=== PATIENT | female | born 1950 | race Asian ===

== ENCOUNTER 2019-12-05 06:50 | Outpatient (CLI) | payer MEDICARE, SELFPAY ==
--- NOTE | 2019-12-05 07:01 | US_ITS ---
WS: [id number] RIGHT UPPER QUADRANT ULTRASOUND HISTORY: ELEVATED LFTS COMPARISON: None available. Liver: 13.7 cm in length. Normal size and echogenicity with no intrahepatic dilatation. No mass. Gallbladder: Normally distended gallbladder with no stones or wall thickening. CBD: 0.6 cm Pancreas: Normal size and echogenicity. Right kidney: 9.8 cm in length. Normal echogenicity with no mass or hydronephrosis. Aorta and IVC: Unremarkable. No ascites. US/US liver [id number] IMPRESSION: Normal RIGHT upper quadrant ultrasound.
== END 2019-12-05 06:51 | disposition home or self-care (01) ==
LOC: RAD 06:59
PROVIDERS: PCP Family Medicine; Visit Provider Family Medicine
DX: R74.8 Abnormal levels of other serum enzymes (principal); R79.89 Other specified abnormal findings of blood chemistry
CPT/HCPCS: 76705

== ENCOUNTER 2020-07-25 09:40 | Outpatient (CLI) | payer MEDICARE, SELFPAY ==
--- NOTE | 2020-07-25 09:46 | MM_ITS ---
WS: [id number] BILATERAL SCREENING DIGITAL MAMMOGRAM WITH CAD HISTORY: SCREENING COMPARISON: None available. Bilateral CC and MLO views submitted. Computer aided detection analyzed. Breast composition: There are scattered areas of fibroglandular density. No suspicious masses, microc alcifications or architectural distortion. Patient does have bilateral breast implants which are barbara apsed and similar to prior studies. No implant displacement views will be obtained. Stable lymph node upper outer quadrant of the LEFT breast. MM/[id number] IMPRESSION: BI-RADS: 2-Benign FOLLOW UP: 1 Year Follow-up
== END 2020-07-25 09:41 | disposition home or self-care (01) ==
LOC: RADSHAW 09:45
PROVIDERS: PCP Family Medicine; Visit Provider Internal Medicine
DX: Z12.31 Encounter for screening mammogram for malignant neoplasm of breast (principal)
CPT/HCPCS: 77067

== ENCOUNTER 2021-04-15 08:34 | Outpatient (CLI) | payer MEDICARE, SELFPAY ==
--- NOTE | 2021-04-15 | US_ITS ---
WS: [id number] RIGHT UPPER QUADRANT ULTRASOUND HISTORY: ABDOMINAL PAIN COMPARISON: 12/05/2019 Liver: 12.7 cm in length. Normal size liver. No bile duct dilatation or mass. Gallbladder: Normally distended gallbladder with no stones or wall thickening. CBD: 0.5 cm Pancreas: Normal size and echogenicity. Right kidney: 10.2 cm in length. Normal size and echogenicity. No hydronephrosis or mass. Aorta and IVC: Unremarkable abdominal aorta and IVC. No ascites. US/US gall bladder [id number] IMPRESSION: Normal RIGHT upper quadrant ultrasound.
== END 2021-04-15 08:35 | disposition home or self-care (01) ==
LOC: US 08:36
PROVIDERS: PCP Family Medicine; Visit Provider Family Medicine
DX: R10.9 Unspecified abdominal pain (principal)
CPT/HCPCS: 76705

== ENCOUNTER 2021-07-24 08:47 | Outpatient (CLI) | payer MEDICARE, SELFPAY ==
[2021-07-24 11:49] LABS: Alanine Aminotransferase 29 U/L (0-33); Albumin Level 4.3 g/dL (3.5-5.2); Alkaline Phosphatase 68 IU/L (35-105); Aspartate Amino Transferase 27 U/L (0-32); Blood Urea Nitrogen 11 mg/dL (8-23); CRP High Sensitivity Cardiac < 0.150 mg/dL (0.0-0.3); Calcium 7.9 mg/dL (8.5-10.5); Carbon Dioxide 20 mmol/L (22-29); Chloride 107 mmol/L (98-107); Ferritin 697 ng/mL (15-150); Globulin 2.6 g/dL (1.3-4.6); Glucose 92 mg/dL (65-115); Iron 191 ug/dL (37-145); Osmolality Calculated 293 mOsm/kg (285-295); Sodium 142 mmol/L (136-145); Total Bilirubin 0.7 mg/dL (0.15-1.2); Total Iron Binding Capacity 298 mcg/dl; Total Protein 6.9 g/dL (6.6-8.7); Unsaturated Iron Binding 107 ug/dL (112-347)
[2021-07-24 11:53] LABS: Anion Gap 19.1 (5-19); Potassium 4.1 mmol/L (3.5-5.1)
--- NOTE | 2021-07-24 15:43 | ONC CON_ITS ---
Dr. Soria New Patient Note Patient: Mario Guallpa Unit #: [id number]: 1950 Dicatated By: Buster Soria M.D.Date of Visit: Jul 24, 2021 Onc MED New Patient/Consult Referring Physician: Dr. Hansa Ferguson M.D. Chief Complaint: Hemochromatosis. History of Present Illness: This is a 70-year-old woman with hereditary hemochromatosis. She has hypertension, hyperlipidemia, osteoporosis, and peripheral neuropathy. During the course of her follow-up with Dr. Ferguson, she was found to have elevated transferrin saturation and an elevated ferritin level. Her laboratory results from 06/16/2021 included a borderline high serum iron level at 169 mcg/dL and transferrin saturation in the upper normal range at 52%. The serum ferritin at that time was elevated at 401.5 ng/mL. Her CBC showed hemoglobin borderline high at 15.0 g/dL with hematocrit 47.0%. The white blood cell count was 5200 and the platelet count was 359,000. Comprehensive metabolic profile showed normal BUN and creatinine at 17 and 0.60 mg/dL. The bilirubin and liver enzymes were normal. TSH was normal at 3.879 ???IU/mL. 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 She says she has been feeling okay. She has good energy and she has normal activity. ECOG score is 0. Her appetite is good. She has not had fever or night sweats. She sometimes feels hot. She has a lot of allergy related sinus symptoms, and she sometimes has associated hearing loss. She has not had sore mouth or throat and she has no difficulty swallowing. She complains that she coughs all the time. She does not complain of shortness of breath or chest pain. She has no GI or complaints. She occasionally has joint pain after activity, mainly in the shoulders and knees. She sometimes has a headache. She does not complain of dizziness. She sometimes has numbness in her right leg. She has no other focal neurologic symptoms. Past Medical History: Her medical history includes hypercholesterolemia, hypertension, osteoporosis, peripheral neuropathy, and vitamin D deficiency. Past Surgical History: Her surgical/procedural history includes nasal surgery in 1995 and hysterectomy/bilateral salpingectomy-oophorectomy in 1982. Medications: Alendronate Sodium 1 Tablet (of 70 mg) Oral q 1 week, Allergy 1 Tablet (of 25 mg) Oral at bedtime, Aspirin 1 Tablet (of 325 mg) Oral daily, B-12 1 Tablet (of 1000 mcg) Oral daily, Loratadine 1 Tablet (of 10 mg) Oral daily, Losartan Potassium 1 Tablet (of 25 mg) Oral daily, Multivitamin-Minerals 1 Tablet Oral daily, Vitamin E Tablet Oral daily Allergies: Strawberries and Tomato. Social History: Ms. Guallpa is . She is a non-smoker. She has just occasional alcohol use. Family History: Her father is still living. Mother around age 80. She had hypertension and some type of bone deterioration. Her siblings and 2 children are all healthy. Review Of Symptoms: Constitutional - She feels okay. Her energy is good and she has normal activity. Appetite is good and weight is stable. No fever or night sweats. She sometimes feels hot. ECOG score is 0, Eyes - No change in vision, ENMT - She has a lot of allergy related symptoms, and she sometimes has trouble hearing with it. No mouth sores. No sore throat or difficulty swallowing, Hematologic/Lymphatic - No abnormal bruising or bleeding, Respiratory - No shortness of breath. She coughs all the time. No pleuritic pain or hemoptysis, Cardiovascular - No angina pain. No palpitations, Gastrointestinal - No nausea or vomiting. No heartburn or acid reflux. No diarrhea or constipation. No blood in the stool or black stools, Genitourinary (F) - No dysuria or hematuria. No urinary frequency. No urgency or incontinence, Musculoskeletal - She sometimes has joint pain after activity, mainly in the shoulders and knees, Integumentary - No skin rash or other skin changes, Neurologic - She sometimes has headache. No dizziness. She sometimes has numbness in her right leg. No other focal neurologic symptoms, Psychiatric - No anxiety or depression. No insomnia. Vital Signs: Performed on Jul 24, 2021 09:20: 0, 0, 27.02, 1.55 sq.m, 59 in, 97 %, 92 /min, 16 /min, 165/92 mm(hg) (HIGH), 98.0 F (LOW), and 133.8 lbs (HIGH). Physical Examination: Constitutional - She appears to be in good general health, Eyes - Sclerae nonicteric. Conjunctivae clear, ENMT - No lesions noted in the oral cavity, Neck - No mass or thyromegaly, Hematologic/Lymphatic - No cervical, clavicular, or axillary adenopathy, Respiratory - Lungs are clear with good air movement bilaterally, Cardiovascular - Heart rhythm is regular. There is no murmur, gallop, or rub noted, Abdomen - Soft and non-tender. Liver and spleen are not enlarged. There is no abdominal mass or ascites noted and there is no inguinal adenopathy, Back/Spine - No spine or CVA tenderness noted, Extremities - No edema. Dorsalis pedis pulses are palpable bilaterally, Integumentary - No rashes. No suspicious skin lesions noted, Neurologic - No focal neurologic deficits noted. Problem List: 1. Hereditary hemochromatosis with HFE gene analysis showing heterozygosity for the H63D mutation. 2. Hypertension. 3. Hyperlipidemia. 4. Osteoporosis. 5. Peripheral neuropathy. Problems Addressed with this Encounter and Plan: Patient presenting with elevated transferrin saturation and elevated ferritin level. She was confirmed on HFE gene analysis to have heterozygosity for the H63D mutation, consistent with hereditary hemochromatosis. At this point it is uncertain if there is associated iron overload, but it is unlikely, as heterozygotes typically have mildly elevated iron levels, but they only rarely have iron overload. Furthermore, iron overload tends to be associated with ferritin levels greater than 500 ng/mL. At this point I will repeat her comprehensive metabolic profile, the serum iron studies, and the ferritin level. Beyond that, the options for further management would be to just follow her expectantly or to assess for iron overload. This would most commonly be done with liver biopsy or hepatic MRI. Given the low probability that she would have associated iron overload, I think expectant management would be very reasonable. Signed By: Buster Soria M.D. <<Signature on File>>
== END 2021-07-24 08:48 | disposition home or self-care (01) ==
PROVIDERS: PCP Family Medicine; Visit Provider Internal Medicine Medical Oncology
DX: E83.110 Hereditary hemochromatosis (principal); I10 Essential (primary) hypertension; E78.5 Hyperlipidemia, unspecified; M81.0 Age-related osteoporosis without current pathological fracture; G62.9 Polyneuropathy, unspecified; E78.00 Pure hypercholesterolemia, unspecified; E55.9 Vitamin D deficiency, unspecified; Z79.899 Other long term (current) drug therapy
CPT/HCPCS: 80053; 82728; 83540; 83550; 86141; 99204

== ENCOUNTER 2021-10-14 12:01 | Outpatient (CLI) | payer MEDICARE, SELFPAY ==
--- NOTE | 2021-10-14 12:11 | XR_ITS ---
WS: [id number] SCREENING DEXA SCAN [employer] CLINICAL INFORMATION: ASYMTOMATIC MENOPAUSAL STATE COMPARISON: FINDINGS: The L1-L4 bone mineral density measures 0.864 g/cm2. This corresponds to a T score score of -2.6 and Z score of -0.8. Left femoral neck bone mineral density measures 0.803 g/cm2. This corresponds to a T score of -1.6 an d Z score of 0.0. Right femoral neck bone mineral density measures 0.852 g/cm2. This corresponds to a T score -1.2of an d Z score of 0.4. Mean femoral neck bone mineral density measures 0.828 g/cm2. This corresponds to a T score of -1.4 an d Z score of 0.2. XR/XR DEXA axial skeleton* [id number] IMPRESSION: Osteoporosis lumbar spine. Osteopenia in the femoral necks. Patient's FRAX calculated 10 year probability for major osteoporotic fracture i s 9.9 % and osteoporotic hip fracture is 3.0%.
== END 2021-10-14 12:02 | disposition home or self-care (01) ==
PROVIDERS: PCP Family Medicine; Visit Provider Family Medicine
DX: Z78.0 Asymptomatic menopausal state (principal); M81.0 Age-related osteoporosis without current pathological fracture; M85.88 Other specified disorders of bone density and structure, other site
CPT/HCPCS: 77080

== ENCOUNTER 2022-01-06 13:17 | Outpatient (CLI) | payer MEDICARE, SELFPAY ==
--- NOTE | 2022-01-06 13:26 | MM_ITS ---
WS: [id number] BILATERAL 3D TOMOSYNTHESIS DIGITAL SCREENING MAMMOGRAPHY WITH CAD CLINICAL INFORMATION: SCREENING HISTORY: Screening mammogram. No current complaints. COMPARISON: July 25, 2020 TECHNIQUE: Bilateral CC and MLO views. FINDINGS: Scattered fibroglandular densities bilaterally. A few incidental punctate calcifications. Vascular ca lcification. Stable LEFT intramammary lymph node. Bilateral decompressed breast implants are unchange d. No suspicious focal mass, asymmetry, calcifications, or architectural distortion. No evidence of m alignancy. MM/[place] [id number] IMPRESSION: BI-RADS: 2-Benign FOLLOW UP: 1 Year Follow-up Recommend return to annual screening mammography.
== END 2022-01-06 13:18 | disposition home or self-care (01) ==
LOC: RAD 13:18
PROVIDERS: PCP Family Medicine; Visit Provider Family Medicine
DX: Z12.31 Encounter for screening mammogram for malignant neoplasm of breast (principal)
CPT/HCPCS: 77063; 77067

== ENCOUNTER 2023-01-14 09:45 | Outpatient (CLI) | payer MEDICARE, SELFPAY ==
--- NOTE | 2023-01-14 09:55 | MM_ITS ---
WS: [id number] BILATERAL SCREENING DIGITAL BREAST MAMMOGRAPHY WITH BLANCA DISPLACEMENT VIEWS. CAD PERFORMED. HISTORY: SCREENING COMPARISON: 01/06/2022 and 07/25/2020 Bilateral craniocaudal and mediolateral oblique views are performed with tomosynthesis and SM. Blanca displacement views in CC and MLO projection also performed. Breasts composition: The breasts are almost entirely fatty. Bilateral completely collapsed breast im plants. No interval change. No suspicious masses or calcifications within either breast. MM/[place] [id number] IMPRESSION: BI-RADS: 2-Benign FOLLOW-UP: 1 Year Follow-up
== END 2023-01-14 09:46 | disposition home or self-care (01) ==
LOC: RAD 09:46
PROVIDERS: PCP Family Medicine; Visit Provider Family Medicine
DX: Z12.39 Encounter for other screening for malignant neoplasm of breast (principal)
CPT/HCPCS: 77063; 77067

== ENCOUNTER 2023-10-04 08:21 | Oncology outpatient (recurring) (ONCR) | payer MEDICARE, SELFPAY ==
[2023-10-04 11:57] LABS: Basophils # 0.1 10^3/uL (0.0-0.1); Basophils % 0.9 %; Eosinophils # 0.1 10^3/uL (0.0-0.8); Eosinophils % 1.9 %; Hematocrit 46.9 % (36-47); Lymphocytes # 2.1 10^3/uL (0.8-4.8); Lymphocytes % 35.8 %; Mean Corpuscular HGB Conc 33.3 g/dL (30-55); Mean Corpuscular Hemoglobin 33.1 pg (27-33); Mean Corpuscular Volume 99.4 fl (85-98); Mean Platelet Volume 8.8 fL (7.4-10.4); Monocytes # 0.5 10^3/uL (0.2-0.9); Neutrophils # 3.04 10^3/uL (1.8-7.7); Neutrophils % 52.2 %; Nucleated Red Blood Cells % 0 %; Platelet Count 389 10^3/cmm (157-399); Red Blood Count 4.72 10^6/uL (3.85-5.65); Red Cell Distribution Width 11.7 % (12.1-15.1); White Blood Count 5.81 10^3/uL (3.29-11.43)
[2023-10-04 12:05] LABS: Erythrocyte Sedimentation Rate 9 mm/hr (0-15)
[2023-10-04 12:29] LABS: Alanine Aminotransferase 32 U/L (0-33); Albumin Level 4.4 g/dL (3.5-5.2); Alkaline Phosphatase 78 U/L (35-105); Anion Gap 14.7 (5-19); Aspartate Amino Transferase 23 U/L (0-32); Blood Urea Nitrogen 11 mg/dL (8-23); Calcium 9.2 mg/dL (8.5-10.5); Carbon Dioxide 27 mmol/L (22-29); Chloride 102 mmol/L (98-107); Creatinine Clr Calc Pharmacy 62.3375; Ferritin 776 ng/mL (15-150); Glucose 128 mg/dL (65-115); Iron 145 ug/dL (37-145); Osmolality Calculated 291 mOsm/kg (285-295); Percent Saturation 53.7 % (20-50); Potassium 3.7 mmol/L (3.5-5.1); Sodium 140 mmol/L (136-145); Thyroid Stimulating Hormone 3.34 uIU/mL (0.27-4.20); Total Bilirubin 0.7 mg/dL (0.15-1.2); Total Iron Binding Capacity 270 mcg/dl; Total Protein 7.4 g/dL (6.6-8.7); Unsaturated Iron Binding 125 ug/dL (112-347)
[2023-10-04 12:40] LABS: Hepatitis A Antibody IgM Non-Reactive (Nonreactive); Hepatitis B Core AB, Total Non-Reactive (Nonreactive); Hepatitis B Surface AB 7.1 (11.5-1000); Hepatitis B Surface Antigen Non-Reactive (Nonreactive); Hepatitis C Virus Antibody Non-Reactive (Nonreactive)
[2023-10-05 15:30] LABS: Cyclic Citrullinated Peptide <16 UNITS
[2023-10-05 16:04] LABS: Anti-Nuclear Antibody Screen NEGATIVE (NEGATIVE)
[2023-10-08 14:44] LABS: Soluble Transferrin Receptor 1.19 mg/L (0.76-1.76)
== END 2023-10-09 23:59 | disposition home or self-care (01) ==
PROVIDERS: PCP Family Medicine; Visit Provider Internal Medicine
DX: C15.5 Malignant neoplasm of lower third of esophagus (principal); Z79.899 Other long term (current) drug therapy; E83.119 Hemochromatosis, unspecified; R53.83 Other fatigue
CPT/HCPCS: 36415; 80053; 82728; 83540; 83550; 84238; 84439; 84443; 85025; 85651; 86038; 86140; 86200; 86705; 86706; 86709; 86803; 87340; 99204

== ENCOUNTER 2023-11-08 09:00 | Oncology outpatient (recurring) (ONCR) | payer MEDICARE, SELFPAY ==
[2023-11-01 09:30] LABS: Basophils # 0.1 10^3/uL (0.0-0.1); Eosinophils # 0.1 10^3/uL (0.0-0.8); Eosinophils % 2.2 %; Hematocrit 45.7 % (36-47); Lymphocytes % 34.9 %; Mean Platelet Volume 8.9 fL (7.4-10.4); Monocytes # 0.5 10^3/uL (0.2-0.9); Monocytes % 8.6 %; Neutrophils % 53.1 %; Nucleated Red Blood Cells % 0 %; Platelet Count 365 10^3/cmm (157-399); Red Blood Count 4.57 10^6/uL (3.85-5.65); Red Cell Distribution Width 11.8 % (12.1-15.1); White Blood Count 5.84 10^3/uL (3.29-11.43)
[2023-11-01 09:54] LABS: Ferritin 931 ng/mL (15-150)
[2023-11-01 10:55] VITALS: BP 170/76; PULSE 97; RESP 17; TEMP 36.6; O2SAT 98
[2023-11-08 09:21] VITALS: BP 145/85; PULSE 75; RESP 17; TEMP 36.9; O2SAT 98
[2023-11-08 09:25] LABS: Basophils % 0.6 %; Eosinophils # 0.1 10^3/uL (0.0-0.8); Eosinophils % 1.9 %; Hematocrit 39.3 % (36-47); Lymphocytes # 1.7 10^3/uL (0.8-4.8); Lymphocytes % 36.4 %; Mean Corpuscular HGB Conc 33.1 g/dL (30-55); Mean Corpuscular Hemoglobin 33.3 pg (27-33); Mean Corpuscular Volume 100.8 fl (85-98); Mean Platelet Volume 8.8 fL (7.4-10.4); Monocytes # 0.4 10^3/uL (0.2-0.9); Neutrophils # 2.48 10^3/uL (1.8-7.7); Neutrophils % 51.9 %; Nucleated Red Blood Cells % 0 %; Platelet Count 365 10^3/cmm (157-399); Red Cell Distribution Width 12.7 % (12.1-15.1); White Blood Count 4.78 10^3/uL (3.29-11.43)
[2023-11-08 09:43] LABS: Ferritin 644 ng/mL (15-150)
[2023-11-08 10:35] VITALS: BP 147/87; PULSE 71; RESP 17; TEMP 36.9; O2SAT 98
== END 2023-11-08 23:59 | disposition home or self-care (01) ==
PROVIDERS: PCP Family Medicine; Visit Provider Internal Medicine
DX: Z14.8 Genetic carrier of other disease (principal); R79.89 Other specified abnormal findings of blood chemistry
CPT/HCPCS: 36415; 82728; 85025; 99195

== ENCOUNTER 2023-11-28 13:32 | Outpatient (CLI) | payer MEDICARE, SELFPAY ==
--- NOTE | 2023-11-28 13:45 | MR_ITS ---
WS: [id number] MRI/MRCP OF THE ABDOMEN WITHOUT GADOLINIUM ENHANCEMENT TECHNIQUE: Coronal T2 Fase BH, Axial T2 Fase BH, Axial T2 FS BH, Zxial 3D Avina BH, Axial DWI BH, 2D MRCP Radial BH, 3D MRCP (Resp), and Axial 3D Dyn BH Post sequences. CLINICAL INFORMATION: HEMACHROMATOSIS IRON OVERLOAD COMPARISON: None. FINDINGS: Images agree by respiratory motion. No evidence of hemochromatosis. No hepatic parenchymal dropout on the in phase imaging to indicate ex cessive iron deposition. Normal liver. Normal gallbladder. Normal visualized common bile duct. Pancreas is normal in appearanc e considering motion artifact. Normal adrenal glands. No hydronephrosis in either kidney. Normal mai ashley abdominal aorta where visualized. Normal renal parenchymal enhancement. Portal vein and splenic v ein are patent. Small LEFT renal cyst. Normal spleen. MR/MR abdomen wo/w con* [id number] Impression: 1. No evidence of hemochromatosis. 2. Small LEFT renal cyst. 3. Liver size upper limits of normal. 4. No hydronephrosis in either kidney. 5. Normal spleen.
[2023-11-28] MEDS: gadobenate dimeglumine 20 mL vial IV (14:46)
== END 2023-11-28 13:33 | disposition home or self-care (01) ==
LOC: RAD 13:32
PROVIDERS: PCP Family Medicine; Visit Provider Internal Medicine
DX: Z14.8 Genetic carrier of other disease (principal)
CPT/HCPCS: 74183; A9577

== ENCOUNTER 2023-12-06 09:00 | Oncology outpatient (recurring) (ONCR) | payer MEDICARE, SELFPAY ==
[2023-11-15 10:53] LABS: Basophils % 0.8 %; Eosinophils # 0.2 10^3/uL (0.0-0.8); Hematocrit 35.7 % (36-47); Lymphocytes # 1.8 10^3/uL (0.8-4.8); Lymphocytes % 36.9 %; Mean Corpuscular HGB Conc 32.2 g/dL (30-55); Mean Corpuscular Hemoglobin 33.2 pg (27-33); Mean Corpuscular Volume 103.2 fl (85-98); Monocytes # 0.5 10^3/uL (0.2-0.9); Monocytes % 9.1 %; Neutrophils # 2.46 10^3/uL (1.8-7.7); Nucleated Red Blood Cells % 0 %; Platelet Count 380 10^3/cmm (157-399); Red Blood Count 3.46 10^6/uL (3.85-5.65); Red Cell Distribution Width 13.5 % (12.1-15.1); White Blood Count 4.93 10^3/uL (3.29-11.43)
[2023-11-15 11:19] LABS: Ferritin 341 ng/mL (15-150)
[2023-11-15 13:15] VITALS: BP 158/96; PULSE 96; RESP 16; TEMP 36.1; O2SAT 96
[2023-11-22 08:39] VITALS: BP 163/103; PULSE 98; RESP 18; TEMP 36.8; O2SAT 97
[2023-11-22 09:39] LABS: Basophils # 0.1 10^3/uL (0.0-0.1); Basophils % 1.1 %; Eosinophils # 0.2 10^3/uL (0.0-0.8); Eosinophils % 2.4 %; Hematocrit 36.9 % (36-47); Lymphocytes % 31.5 %; Mean Corpuscular HGB Conc 31.2 g/dL (30-55); Mean Corpuscular Hemoglobin 33.2 pg (27-33); Mean Corpuscular Volume 106.6 fl (85-98); Mean Platelet Volume 8.9 fL (7.4-10.4); Monocytes # 0.5 10^3/uL (0.2-0.9); Monocytes % 8.6 %; Neutrophils # 3.48 10^3/uL (1.8-7.7); Neutrophils % 56.2 %; Nucleated Red Blood Cells % 0 %; Platelet Count 372 10^3/cmm (157-399); Red Blood Count 3.46 10^6/uL (3.85-5.65); Red Cell Distribution Width 14.1 % (12.1-15.1); White Blood Count 6.19 10^3/uL (3.29-11.43)
[2023-11-22 09:57] LABS: Ferritin 346 ng/mL (15-150)
[2023-11-22 10:22] VITALS: BP 171/86; PULSE 91; RESP 17; TEMP 36.7; O2SAT 97
[2023-11-22 10:49] VITALS: BP 157/95; PULSE 101; RESP 17; TEMP 36.8; O2SAT 98
[2023-11-29 08:50] VITALS: BP 178/97; PULSE 87; RESP 18; TEMP 37.1; O2SAT 97
[2023-11-29 09:18] LABS: Basophils # 0.1 10^3/uL (0.0-0.1); Basophils % 1.4 %; Eosinophils # 0.1 10^3/uL (0.0-0.8); Eosinophils % 1.9 %; Hematocrit 35.2 % (36-47); Lymphocytes # 1.9 10^3/uL (0.8-4.8); Lymphocytes % 33.3 %; Mean Corpuscular HGB Conc 31.5 g/dL (30-55); Mean Corpuscular Hemoglobin 34.3 pg (27-33); Mean Corpuscular Volume 108.6 fl (85-98); Mean Platelet Volume 8.6 fL (7.4-10.4); Monocytes # 0.6 10^3/uL (0.2-0.9); Neutrophils # 3.04 10^3/uL (1.8-7.7); Neutrophils % 52.1 %; Nucleated Red Blood Cells % 0 %; Platelet Count 424 10^3/cmm (157-399); Red Blood Count 3.24 10^6/uL (3.85-5.65); Red Cell Distribution Width 14.3 % (12.1-15.1); White Blood Count 5.83 10^3/uL (3.29-11.43)
[2023-11-29 09:34] LABS: Ferritin 210 ng/mL (15-150)
--- NOTE | 2023-11-29 11:42 | PC.NURSE ---
Discussed labs with Shanthi Cheema due to Dr. Briscoe not available today, called in sick. Patient showing signs of anemia on lab check and ferritin improvement from last phlebotomy pulled one week ago. Patient and spouse agree that they want to wait one week and repeat labs and check then to see how hgb/hct values look. Appointment scheduled. Patient continues to take home blood pressure medication per family physician, and continues to run high when here, BP 173/97. Dr. Briscoe and family physician are aware of blood pressures. Denies any other signs of complications. Patient leaves ambulatory assisted by spouse. - Clovis Wu.
[2023-12-06 08:50] VITALS: BP 160/95; PULSE 87; RESP 17; TEMP 36.6; O2SAT 97
[2023-12-06 09:28] LABS: Basophils # 0.1 10^3/uL (0.0-0.1); Basophils % 1.8 %; Eosinophils # 0.1 10^3/uL (0.0-0.8); Eosinophils % 2.6 %; Hematocrit 40.8 % (36-47); Lymphocytes # 1.6 10^3/uL (0.8-4.8); Lymphocytes % 35.9 %; Mean Corpuscular HGB Conc 29.7 g/dL (30-55); Mean Corpuscular Hemoglobin 34.1 pg (27-33); Mean Corpuscular Volume 114.9 fl (85-98); Mean Platelet Volume 8.6 fL (7.4-10.4); Monocytes # 0.5 10^3/uL (0.2-0.9); Monocytes % 11.7 %; Neutrophils # 2.17 10^3/uL (1.8-7.7); Neutrophils % 47.8 %; Nucleated Red Blood Cells % 0 %; Platelet Count 370 10^3/cmm (157-399); Red Blood Count 3.55 10^6/uL (3.85-5.65); Red Cell Distribution Width 13.1 % (12.1-15.1); White Blood Count 4.54 10^3/uL (3.29-11.43)
[2023-12-06 09:57] LABS: Ferritin 192 ng/mL (15-150)
[2023-12-06 11:41] VITALS: BP 168/94; PULSE 97; RESP 17; TEMP 36.9; O2SAT 98
[2023-12-08 10:03] LABS: Vitamin B12 302 pg/mL (232-1245)
== END 2023-12-09 23:59 | disposition home or self-care (01) ==
PROVIDERS: Internal Medicine Medical Oncology; Nurse Practitioner Family; PCP Family Medicine; Visit Provider Internal Medicine
DX: R79.89 Other specified abnormal findings of blood chemistry (principal); Z53.9 Procedure and treatment not carried out, unspecified reason; Z14.8 Genetic carrier of other disease
CPT/HCPCS: 36415; 82607; 82728; 85025; 99195

== ENCOUNTER 2023-12-13 08:30 | Oncology outpatient (recurring) (ONCR) | payer MEDICARE, SELFPAY ==
[2023-12-13 09:12] VITALS: BP 151/83; PULSE 82; RESP 18; TEMP 36.8; O2SAT 97
[2023-12-13 10:12] LABS: Basophils # 0.1 10^3/uL (0.0-0.1); Basophils % 1.7 %; Eosinophils # 0.1 10^3/uL (0.0-0.8); Hematocrit 37.1 % (36-47); Lymphocytes % 36.5 %; Mean Corpuscular HGB Conc 31.8 g/dL (30-55); Mean Corpuscular Hemoglobin 33.4 pg (27-33); Mean Corpuscular Volume 105.1 fl (85-98); Mean Platelet Volume 8.7 fL (7.4-10.4); Monocytes # 0.5 10^3/uL (0.2-0.9); Monocytes % 9.1 %; Neutrophils # 2.72 10^3/uL (1.8-7.7); Neutrophils % 50.3 %; Nucleated Red Blood Cells % 0 %; Platelet Count 405 10^3/cmm (157-399); Red Blood Count 3.53 10^6/uL (3.85-5.65); Red Cell Distribution Width 12.9 % (12.1-15.1)
[2023-12-13 10:35] LABS: Ferritin 128 ng/mL (15-150)
== END 2024-01-08 23:59 | disposition home or self-care (01) ==
PROVIDERS: Nurse Practitioner Family; PCP Family Medicine; Visit Provider Internal Medicine
DX: R79.89 Other specified abnormal findings of blood chemistry (principal)
CPT/HCPCS: 36415; 82728; 85025

== ENCOUNTER 2024-01-10 09:53 | Oncology outpatient (recurring) (ONCR) | payer MEDICARE, SELFPAY ==
[2024-01-10 11:32] LABS: Basophils # 0.1 10^3/uL (0.0-0.1); Basophils % 1.2 %; Eosinophils # 0.1 10^3/uL (0.0-0.8); Eosinophils % 1.7 %; Hematocrit 44.6 % (36-47); Lymphocytes # 2.3 10^3/uL (0.8-4.8); Lymphocytes % 40.6 %; Mean Corpuscular HGB Conc 32.7 g/dL (30-55); Mean Corpuscular Hemoglobin 32.3 pg (27-33); Mean Corpuscular Volume 98.7 fl (85-98); Mean Platelet Volume 9.1 fL (7.4-10.4); Monocytes # 0.6 10^3/uL (0.2-0.9); Monocytes % 10.8 %; Neutrophils % 45.5 %; Nucleated Red Blood Cells % 0 %; Platelet Count 364 10^3/cmm (157-399); Red Blood Count 4.52 10^6/uL (3.85-5.65); Red Cell Distribution Width 11.6 % (12.1-15.1); White Blood Count 5.72 10^3/uL (3.29-11.43)
[2024-01-10 12:00] LABS: Alanine Aminotransferase 23 U/L (0-33); Albumin Level 4.2 g/dL (3.5-5.2); Alkaline Phosphatase 76 U/L (35-105); Anion Gap 16.7 (5-19); Aspartate Amino Transferase 27 U/L (0-32); Blood Urea Nitrogen 12 mg/dL (8-23); Calcium 8.5 mg/dL (8.5-10.5); Carbon Dioxide 23 mmol/L (22-29); Chloride 106 mmol/L (98-107); Creatinine Clr Calc Pharmacy 58.3148; Glucose 128 mg/dL (65-115); Osmolality Calculated 295 mOsm/kg (285-295); Potassium 3.7 mmol/L (3.5-5.1); Sodium 142 mmol/L (136-145); Total Bilirubin 0.5 mg/dL (0.15-1.2); Total Protein 7.2 g/dL (6.6-8.7)
[2024-01-10 20:21] LABS: Ferritin 96 ng/mL (15-150); Iron 128 ug/dL (37-145); Percent Saturation 38.7 % (20-50); Total Iron Binding Capacity 330 mcg/dl; Unsaturated Iron Binding 202 ug/dL (112-347)
== END 2024-02-08 23:59 | disposition home or self-care (01) ==
PROVIDERS: PCP Family Medicine; Visit Provider Internal Medicine
DX: E83.119 Hemochromatosis, unspecified; Z14.8 Genetic carrier of other disease
CPT/HCPCS: 36415; 80053; 82728; 83540; 83550; 85025; 99213

== ENCOUNTER → 2024-01-18 09:14 | Outpatient (CLI) | payer MEDICARE, SELFPAY ==
--- NOTE | 2024-01-18 09:16 | MM_ITS ---
WS: [id number] Bilateral screening 3D tomosynthesis digital mammogram, 01/18/2024 Clinical Data: SCREENING Comparison: 01/14/2023, 01/06/2022, 07/25/2020, 05/31/2019, 05/28/2018, 05/27/2017, 01/23/2016, 06/18/2014, 05/29/2013, 04/03/2012, 04/08/2011, 03/30/2010, 914 22,009, 11/20/2007, 10/20/2006. Findings: The breast parenchymal pattern shows fat replacement. No spiculated masses or clustered calcification s are seen. There are no secondary signs of carcinoma. Posterior in each breast are collapsed breast implants. MM/[place] [id number] Impression: 1. Negative bilateral mammogram unchanged. 2. Recommend annual screening mammograms. BIRADS: 2-Benign FOLLOW UP: 1 Year Follow-up The CAD lumber checker was used.
== END | disposition home or self-care (01) ==
LOC: RAD 09:13
PROVIDERS: PCP Family Medicine; Visit Provider Family Medicine
DX: Z12.31 Encounter for screening mammogram for malignant neoplasm of breast (principal); R92.313 Mammographic fatty tissue density, bilateral breasts; Z98.82 Breast implant status
CPT/HCPCS: 77063; 77067

== ENCOUNTER → 2025-01-07 13:01 | Outpatient (BNVA) | payer MEDICARE, SELFPAY | PROVIDERS: PCP Family Medicine; Visit Provider Student in an Organized Health Care Education/Training Program | DX: Z12.11 Encounter for screening for malignant neoplasm of colon (principal) | CPT/HCPCS: 99024; 99204 ==

== ENCOUNTER 2025-01-22 08:30 | Outpatient (CLI) | payer MEDICARE, SELFPAY ==
--- NOTE | 2025-01-22 08:41 | MM_ITS ---
WS: [id number] BILATERAL 3D TOMOSYNTHESIS DIGITAL SCREENING MAMMOGRAPHY WITH CAD CLINICAL INFORMATION: SCREENING HISTORY: Screening mammogram. No current complaints. COMPARISON: 2023 TECHNIQUE: Bilateral CC and MLO views. FINDINGS: Scattered fibroglandular densities bilaterally. No suspicious focal mass, asymmetry, calcifications, or architectural distortion. No evidence of malignancy. Vascular calcification. Stable bilateral deflated breast implants. MM/MM scr tomosynthesis [id number] IMPRESSION: DENSITY: There are scattered areas of fibroglandular density. BI-RADS: 2 - Benign. FOLLOW UP: 1 Year Follow-up Recommend return to annual screening mammography.
== END 2025-01-22 08:31 | disposition home or self-care (01) ==
LOC: RAD 08:34
PROVIDERS: PCP Nurse Practitioner Family; Visit Provider Nurse Practitioner Family
DX: Z12.31 Encounter for screening mammogram for malignant neoplasm of breast (principal); R92.323 Mammographic fibroglandular density, bilateral breasts; R92.1 Mammographic calcification found on diagnostic imaging of breast; Z98.82 Breast implant status
CPT/HCPCS: 77063; 77067

== ENCOUNTER 2025-02-21 06:13 | Day surgery (SDC) | payer MEDICARE, SELFPAY ==
[2025-02-21 06:21] VITALS: BMI 28.3
[2025-02-21 06:31] VITALS: BP 161/95; PULSE 83; RESP 18; TEMP 36.2; O2SAT 96
--- NOTE | 2025-02-21 07:04 | ANES.PREANE2 ---
Pre-Anesthetic Assessment Height/Weight: Height 1.5 m Weight 63.503 kg Temp Pulse Resp BP Pulse Ox O2 Del Method 97.2 F L 83 18 161/95 96 Room Air 02/21/25 06:31 02/21/25 06:31 02/21/25 06:31 02/21/25 06:31 02/21/25 06:31 02/21/25 06:31 Preop Diagnosis: screening Operation Date: 02/21/25 07:15 Proposed Procedures p Colonoscopy 21858 G0121, Z12.11(Not Applicable) - Sergio Rosario MD Familial anesthetic complications: none Was Beta Rene taken within 24 hours: N/A Was Clonidine taken within 24 hours: N/A Last intake: Intake Last Liquid Date 02/20/25 Last Liquid Time 23:30 Last Solid Date 02/19/25 Last Solid Time 23:00 Social No alcohol and No tobacco Exam alert and oriented x 3 Airway Submandibular: within normal limits Cervical ROM: within normal limits Mallampati: Class IV (small mouth opening) Dentition: full Pulmonary None reported CV/HEM Hypertension None reported Hepatic None reported GI None reported Metabolic None reported Musc/skel None reported Neuropsych None reported Anesthetic Plan ASA status: 2 Anesthesia: Anesthesia Evaluation and MAC Medications/Allergies Home Medications ?Medication ?Instructions ?Recorded ?Confirmed ?Last Taken ?Type cholecalciferol (vitamin D3) 25 25 mcg PO DAILY 10/04/23 02/18/25 02/20/25 History mcg (1,000 unit) capsule guaifenesin 1,200 mg tablet, 1,200 mg PO DAILY 10/04/23 02/18/25 02/20/25 History extended release 12 hr (Mucinex) losartan 25 mg tablet 25 mg PO DAILY 10/04/23 02/18/25 02/20/25 History vitamin E (dl, acetate) 45 mg (100 45 mg PO DAILY 10/04/23 02/18/25 02/20/25 History unit) capsule Allergies Allergy/AdvReac Type Severity Reaction Status Date / Time No Known Drug Allergies Allergy Unknown Verified 02/18/25 13:52 Current Medications Generic Name Dose Route Start Last Admin Trade Name Freq PRN Reason Stop Dose Admin Sodium Chloride 1,000 mls @ 15 mls/hr 02/21/25 06:17 02/21/25 06:49 Sodium Chloride 0.9% IV 02/22/25 06:16 15 mls/hr .Q24H PRN Administration COLONOSCOPY FLUIDS PFSH Anesthesia Medical History Elevated ferritin level Hemochromatosis carrier Social History Smoking and tobacco/nicotine status: never used tobacco/nicotine
--- NOTE | 2025-02-21 07:08 | W.PM.OPSFHP ---
Same Day Surgery H&P Indication for Procedure/HPI DATE OF PROCEDURE: February 21, 2025 CHIEF COMPLAINT/INDICATIONFOR SURGICAL PROCEDURE: screening colonoscopy PREOP DIAGNOSIS: screening colonoscopy PLANNED PROCEDURE: Operation Date: 02/21/25 07:15 Proposed Procedures p Colonoscopy 24659 G0121, Z12.11(Not Applicable) - Sergio Rosario MD Medications/Allergies* Home Medications ?Medication ?Instructions ?Recorded ?Confirmed ?Type cholecalciferol (vitamin D3) 25 25 mcg PO DAILY 10/04/23 02/18/25 History mcg (1,000 unit) capsule guaifenesin 1,200 mg tablet, 1,200 mg PO DAILY 10/04/23 02/18/25 History extended release 12 hr (Mucinex) losartan 25 mg tablet 25 mg PO DAILY 10/04/23 02/18/25 History vitamin E (dl, acetate) 45 mg (100 45 mg PO DAILY 10/04/23 02/18/25 History unit) capsule Allergies/Adverse Reactions Allergy/AdvReac Type Severity Reaction Status Date / Time No Known Drug Allergies Allergy Unknown Verified 02/18/25 13:52 Current Medications: Generic Name Dose Route Start Last Admin Trade Name Freq PRN Reason Stop Dose Admin Sodium Chloride 1,000 mls @ 15 mls/hr 02/21/25 06:17 02/21/25 06:49 Sodium Chloride 0.9% IV 02/22/25 06:16 15 mls/hr .Q24H PRN Administration COLONOSCOPY FLUIDS Pertinent History/Comorbid Conditions* Medical History (Updated 10/05/23 @ 11:01 by Rik Briscoe MD) Elevated ferritin level Hemochromatosis carrier Social History Smoking and tobacco/nicotine status: never used tobacco/nicotine Pertinent Exam Findings alert, oriented x 3, clear to auscultation bilaterally, regular rate & rhythm and procedure specific exam findings abdomen soft, nt, nd Recommendations Risks and benefits of procedure reviewed and Patient/family agree to proceed Surgery/Procedure today Coding Level of Care Code Acute Code for Chg Fwd
--- NOTE | 2025-02-21 07:37 | PC.NURSE ---
Cecum Time 0727
[2025-02-21 07:45] VITALS: BP 97/71; PULSE 76; RESP 18; TEMP 36.6; O2SAT 100
[2025-02-21 08:30] VITALS: BP 168/91; PULSE 77; RESP 18; O2SAT 98
--- NOTE | 2025-02-21 08:30 | ANE.PACU2 ---
Inpatient post-anesthesia follow up: Airway intact: Yes Vital signs: Temperature 98 F Pulse Rate 77 Respiratory Rate 18 Blood Pressure 168/91 Pulse Oximetry 98 Oxygen Delivery Me thod Room Air Oxygen Flow Rate Fraction of Inspir ed Oxygen Hydration adequate: Yes Nausea and vomiting: No Pain level: 1 Mental status: Baseline
== END 2025-02-21 08:30 | disposition home or self-care (01) ==
PROVIDERS: PCP Nurse Practitioner Family; Visit Provider Student in an Organized Health Care Education/Training Program
PROC: 0DJD8ZZ Inspection of Lower Intestinal Tract, Via Natural or Artificial Opening Endoscopic (ICD-10-PCS; CPT 45378; principal; 2025-02-21 07:15)
DX: Z12.11 Encounter for screening for malignant neoplasm of colon (principal); K57.30 Diverticulosis of large intestine without perforation or abscess without bleeding; D12.8 Benign neoplasm of rectum; I10 Essential (primary) hypertension
CPT/HCPCS: 45380; 88305; J2704; J7030; J9999

== ENCOUNTER → 2025-03-14 15:09 | Outpatient (BNVA) | payer MEDICARE, SELFPAY | PROVIDERS: PCP Nurse Practitioner Family; Visit Provider Student in an Organized Health Care Education/Training Program | DX: Z12.11 Encounter for screening for malignant neoplasm of colon (principal) | CPT/HCPCS: 99024; 99213 ==